=== PATIENT | male | born 1975 | race Asian ===

== ENCOUNTER 2021-06-27 02:27 | Emergency (ER) | payer OTHER ==
[~2021-06-27] VITALS: Ht 175.3 cm; Wt 81.0 kg
[2021-06-27] MEDS ORDERED: GLUCAGON,HUMAN RECOMBINANT 1MG/VIAL IV ONE ×2 (04:30→06:00)
[2021-06-27 07:12] VITALS: BP 145/92
== END 2021-06-27 11:55 | disposition left against medical advice (07) ==
LOC: ER 02:27 → ENRESERV 09:30 → CANRESERV 09:30 → CANBEDREQ 11:07 → ER 11:55
DX: T18.128A Food in esophagus causing other injury, initial encounter (principal); E11.9 Type 2 diabetes mellitus without complications; X58.XXXA Exposure to other specified factors, initial encounter; Y93.89 Activity, other specified; Y92.018 Other place in single-family (private) house as the place of occurrence of the external cause
CPT/HCPCS: 71045; 96374; 96376; 99284; J1610